=== PATIENT | male | born 1985 | race Caucasian/White ===

== ENCOUNTER 2017-02-11 20:38 | Emergency (ER) | payer OTHER | END 2017-02-11 21:50 | disposition home or self-care (01) | LOC: ER1 20:38 | DX: S60.312A Abrasion of left thumb, initial encounter (principal); S60.412A Abrasion of right middle finger, initial encounter; S60.414A Abrasion of right ring finger, initial encounter; V19.3XXA Pedal cyclist (driver) (passenger) injured in unspecified nontraffic accident, initial encounter; Z88.5 Allergy status to narcotic agent; F17.210 Nicotine dependence, cigarettes, uncomplicated; Y93.55 Activity, bike riding; Y92.830 Public park as the place of occurrence of the external cause; Y99.8 Other external cause status | CPT/HCPCS: 73130; 99283 ==

== ENCOUNTER 2017-02-19 14:47 | Emergency (ER) | payer OTHER | END 2017-02-19 15:33 | disposition home or self-care (01) | LOC: ER1 14:47 | DX: S62.521D Displaced fracture of distal phalanx of right thumb, subsequent encounter for fracture with routine healing (principal); V19.9XXD Pedal cyclist (driver) (passenger) injured in unspecified traffic accident, subsequent encounter; Z88.5 Allergy status to narcotic agent; F17.210 Nicotine dependence, cigarettes, uncomplicated | CPT/HCPCS: 29125; 99283 ==